=== PATIENT | male | born 1965 | race Caucasian/White ===

== ENCOUNTER 2024-01-14 15:18 | Inpatient (IN) | payer MEDICAID, OTHER ==
[~2024-01-14] VITALS: Ht 180.3 cm; Wt 116.5 kg
[2024-01-14 15:43] VITALS: PULSE 114; RESP 19; O2SAT 94
[2024-01-14 16:20] LABS: Urine Bacteria MOD /hpf (None Seen); Urine Blood 3+ /uL (Negative); Urine Clarity Ex.Turbid (Clear); Urine Color Brown (Yellow); Urine Mucus FEW (None Seen); Urine Protein, UAD 1+ (Negative); Urine Specific Gravity 1.024 (1.001-1.035); Urine Urobilinogen 2 mg/dL (Negative); Urine WBC 334 /hpf (0 - 3); Urine pH 5.5 (5.0-9.0)
[2024-01-14] MEDS: cefTRIAXone 1GM/50ML D5W 50 ML IV ONE (16:25)
[2024-01-14] MEDS: SODIUM CHLORIDE 0.9% 1,000 ML IV ONE (16:25)
[2024-01-14 16:26] LABS: Basophils # (auto) 0.1 10 ^3/uL (0-0.2); Basophils % (auto) 0.3 % (0.0-2.0); Eosinophils # (auto) 0.4 10 ^3/uL (0-0.8); Eosinophils % (auto) 2.2 % (0.0-7.0); Hematocrit 44.9 % (41.0-53.0); Hemoglobin 14.9 g/dL (13.5-17.5); Lymphocytes # (auto) 3.5 10 ^3/uL (0.4-5.4); Lymphocytes % (auto) 22.1 % (10.0-50.0); Mean Corpuscular Hgb Conc. 33.3 g/dL (32.0-36.0); Mean Corpuscular Volume 87.2 fL (80.0-100.0); Monocytes # (auto) 1.9 10 ^3/uL (0-1.3); Monocytes % (auto) 11.7 % (0.0-12.0); Neutrophils # (auto) 10.2 10 ^3/uL (1.6-8.6); Neutrophils % (auto) 63.7 % (37.0-80.0); Nucleated Red Blood Cells % 0.1 %; Platelet Count (auto) 403 10^3/uL (140-450); Red Blood Cells 5.15 10^6/uL (4.5-5.90); Red Cell Distribution Width 14.1 % (11.8-14.3)
[2024-01-14] MEDS: AZITHROMYCIN 500MG/ 250ML 250 ML IV ONE (17:19)
[2024-01-14 17:26] LABS: Chloride 105 mmol/L (98-107); Sodium 136 mmol/L (136-145)
[2024-01-14 17:29] LABS: Anion Gap 6 (5-15); Calcium 9.2 mg/dL (8.7-10.4); Carbon Dioxide 25 mmol/L (20-30)
[2024-01-14 17:30] LABS: Potassium 3.5 mmol/L (3.5-5.1)
[2024-01-14 17:34] LABS: Glucose 160 mg/dL (74-106)
[2024-01-14 17:48] LABS: BUN/Creatinine Ratio 11.5 (10.0-20.0); Blood Urea Nitrogen 7 mg/dL (9-23)
[2024-01-14 19:35] VITALS: PULSE 94; RESP 18; O2SAT 93
[2024-01-14] MEDS ORDERED: HYDROcodone-ACET 5/325MG TAB PO PRN (21:00)
[2024-01-14] MEDS ORDERED: ACETAMINOPHEN 325 MG TAB PO PRN (21:00)
[2024-01-14] MEDS ORDERED: DEXTROSE (50%) 50ML SYRG IV PRN (21:00)
[2024-01-14] MEDS ORDERED: DOCUSATE SOD 100 MG CAP PO PRN (21:00)
[2024-01-14] MEDS: SODIUM CHLORIDE 0.9% 1,000 ML IV SCH (21:00)
[2024-01-14] MEDS ORDERED: hydrALAZINE HCL 20 MG/ML VL IV PRN (21:00)
[2024-01-14] MEDS ORDERED: ONDANSETRON HCL 4 MG/2 ML VIAL IV PRN (21:00)
[2024-01-14] MEDS: ACCU-CHEK COMFORT CURVE STRIP VI SCH (21:46)
[2024-01-14] MEDS: InsuLIN REG 1unit/0.01ml Soln (100units/ml) SC SCH (21:47)
[2024-01-14] MEDS: ATORVASTATIN 20 MG TAB PO SCH (21:49)
[2024-01-14] MEDS ORDERED: MORPHINE SULFATE INJ 2 MG/ml SYRG IV PRN (23:45)
[2024-01-14] MEDS ORDERED: NITROGLYCERIN 0.4 MG SL TAB SL PRN (23:45)
[2024-01-15] VITALS (8 sets, daily range): BP systolic 100–126; BP diastolic 60–79; PULSE 53–84; RESP 17–21; TEMP 97–98; O2SAT 93–97
[2024-01-15 05:43] LABS: Basophils # (auto) 0.1 10 ^3/uL (0-0.2); Basophils % (auto) 0.4 % (0.0-2.0); Eosinophils # (auto) 0.2 10 ^3/uL (0-0.8); Eosinophils % (auto) 1.6 % (0.0-7.0); Hemoglobin 13.2 g/dL (13.5-17.5); Lymphocytes # (auto) 2.6 10 ^3/uL (0.4-5.4); Lymphocytes % (auto) 19.6 % (10.0-50.0); Mean Corpuscular Hemoglobin 29.2 pg (28.0-32.0); Mean Corpuscular Hgb Conc. 33.7 g/dL (32.0-36.0); Mean Corpuscular Volume 86.6 fL (80.0-100.0); Monocytes # (auto) 1.3 10 ^3/uL (0-1.3); Neutrophils # (auto) 8.9 10 ^3/uL (1.6-8.6); Neutrophils % (auto) 68.4 % (37.0-80.0); Platelet Count (auto) 371 10^3/uL (140-450); Red Cell Distribution Width 13.7 % (11.8-14.3)
[2024-01-15] MEDS: InsuLIN REG 1unit/0.01ml Soln (100units/ml) SC SCH (06:14)
[2024-01-15 06:16] LABS: Alanine Aminotransferase 14 U/L (7-40); Alkaline Phosphatase 59 U/L (46-116); Calcium 9.1 mg/dL (8.7-10.4)
[2024-01-15 06:17] LABS: Albumin 3.9 g/dL (3.2-4.8); Anion Gap 3 (5-15); Aspartate Aminotransferase 8 U/L (13-40); BUN/Creatinine Ratio 11.3 (10.0-20.0); Bilirubin, Total 0.6 mg/dL (0.2-1.0); Blood Urea Nitrogen 6 mg/dL (9-23); Carbon Dioxide 27 mmol/L (20-30); Chloride 106 mmol/L (98-107); Glucose 138 mg/dL (74-106); Potassium 3.5 mmol/L (3.5-5.1); Sodium 136 mmol/L (136-145); Total Protein 6.7 g/dL (5.7-8.2)
[2024-01-15] MEDS: cefTRIAXone 1GM/50ML D5W 50 ML IV SCH (09:19)
[2024-01-15] MEDS: ASPirin 81 mg TAB PO SCH (10:12)
[2024-01-15] MEDS: AZITHROMYCIN 500MG/ 250ML 250 ML IV SCH (10:12)
[2024-01-15] MEDS: PHENAZOPYRIDINE HCL 100 MG TAB PO SCH (11:49)
[2024-01-15] MEDS: TOLTERODINE TARTRATE 1 MG TAB PO ONE (11:49)
[2024-01-15] MEDS: SODIUM CHLORIDE 0.9% 1,000 ML IV SCH (12:15)
[2024-01-15 16:27] LABS: Free T3 3.74 pg/mL (2.3-4.2)
[2024-01-15 16:28] LABS: Folate (Folic Acid) 17.24 ng/mL (>5.38); Free T4 (Free Thyroxine) 0.87 ng/dL (0.89-1.76)
[2024-01-15] MEDS ORDERED: ENOXAPARIN SOD 60 MG/0.6 ML SYRINGE SC STA (16:51)
[2024-01-15] MEDS ORDERED: LEVOTHYROXINE SODIUM 50 MCG TAB PO STA (17:10)
[2024-01-15] MEDS ORDERED: LEVOTHYROXINE SODIUM 100 MCG TAB PO STA (17:19)
[2024-01-15] MEDS: ENOXAPARIN SOD 40 MG/0.4 ML SYRINGE SC SCH (18:05)
[2024-01-15] MEDS: LEVOTHYROXINE SODIUM 100 MCG TAB PO ONE (18:11)
[2024-01-16] VITALS (7 sets, daily range): BP systolic 98–124; BP diastolic 42–69; PULSE 79–86; RESP 18–24; TEMP 98–98.6; O2SAT 94–97
[2024-01-16 02:44] LABS: COVID19 ANTIGEN SOFIA FIA NEGATIVE (NEGATIVE)
[2024-01-16] MEDS ORDERED: LEVOTHYROXINE SODIUM 50 MCG TAB PO SCH (06:00)
[2024-01-16] MEDS: LEVOTHYROXINE SODIUM 100 MCG TAB PO SCH (06:13)
[2024-01-16 07:08] LABS: Basophils # (auto) 0 10 ^3/uL (0-0.2); Basophils % (auto) 0.4 % (0.0-2.0); Eosinophils # (auto) 0.4 10 ^3/uL (0-0.8); Eosinophils % (auto) 3.3 % (0.0-7.0); Hematocrit 39.2 % (41.0-53.0); Hemoglobin 13.4 g/dL (13.5-17.5); Lymphocytes % (auto) 18.7 % (10.0-50.0); Mean Corpuscular Hemoglobin 29.4 pg (28.0-32.0); Mean Corpuscular Hgb Conc. 34.1 g/dL (32.0-36.0); Mean Corpuscular Volume 86.3 fL (80.0-100.0); Monocytes # (auto) 0.9 10 ^3/uL (0-1.3); Monocytes % (auto) 8.5 % (0.0-12.0); Neutrophils # (auto) 7.4 10 ^3/uL (1.6-8.6); Neutrophils % (auto) 69.1 % (37.0-80.0); Platelet Count (auto) 376 10^3/uL (140-450); Red Blood Cells 4.54 10^6/uL (4.5-5.90); Red Cell Distribution Width 13.9 % (11.8-14.3); White Blood Cell 10.6 10^3/uL (4.4-10.8)
[2024-01-16 07:25] LABS: Alanine Aminotransferase 11 U/L (7-40); Albumin 3.9 g/dL (3.2-4.8); Alkaline Phosphatase 57 U/L (46-116); Anion Gap 2 (5-15); Aspartate Aminotransferase 8 U/L (13-40); BUN/Creatinine Ratio 10.5 (10.0-20.0); Bilirubin, Total 0.4 mg/dL (0.2-1.0); Blood Urea Nitrogen 6 mg/dL (9-23); Calcium 9.3 mg/dL (8.7-10.4); Carbon Dioxide 29 mmol/L (20-30); Chloride 105 mmol/L (98-107); Glucose 135 mg/dL (74-106); Potassium 3.8 mmol/L (3.5-5.1); Sodium 136 mmol/L (136-145); Total Protein 6.7 g/dL (5.7-8.2)
[2024-01-16] MEDS: levoFLOXacin 750MG 150 ML IV ONE (12:22)
[2024-01-16] MEDS: MUPIROCIN 2% OINT 15gm or 22gm FOR MRSA NARES EACHNOSTRI SCH (21:36)
[2024-01-17] VITALS (7 sets, daily range): BP systolic 118–126; BP diastolic 64–73; PULSE 68–85; RESP 17–20; TEMP 98–98.5; O2SAT 95–97
[2024-01-17 07:11] LABS: Basophils # (auto) 0 10 ^3/uL (0-0.2); Basophils % (auto) 0.4 % (0.0-2.0); Eosinophils # (auto) 0.4 10 ^3/uL (0-0.8); Eosinophils % (auto) 4.4 % (0.0-7.0); Hematocrit 38.2 % (41.0-53.0); Hemoglobin 13.2 g/dL (13.5-17.5); Lymphocytes # (auto) 2.1 10 ^3/uL (0.4-5.4); Lymphocytes % (auto) 23.6 % (10.0-50.0); Mean Corpuscular Hemoglobin 29.7 pg (28.0-32.0); Mean Corpuscular Hgb Conc. 34.5 g/dL (32.0-36.0); Mean Corpuscular Volume 85.9 fL (80.0-100.0); Monocytes # (auto) 0.8 10 ^3/uL (0-1.3); Monocytes % (auto) 9.3 % (0.0-12.0); Neutrophils # (auto) 5.6 10 ^3/uL (1.6-8.6); Neutrophils % (auto) 62.3 % (37.0-80.0); Platelet Count (auto) 394 10^3/uL (140-450); Red Blood Cells 4.44 10^6/uL (4.5-5.90); Red Cell Distribution Width 13.5 % (11.8-14.3)
[2024-01-17 07:27] LABS: Alanine Aminotransferase 17 U/L (7-40); Albumin 3.9 g/dL (3.2-4.8); Alkaline Phosphatase 54 U/L (46-116); Anion Gap 6 (5-15); Aspartate Aminotransferase 9 U/L (13-40); BUN/Creatinine Ratio 10.9 (10.0-20.0); Bilirubin, Total 0.4 mg/dL (0.2-1.0); Blood Urea Nitrogen 6 mg/dL (9-23); Calcium 9.2 mg/dL (8.7-10.4); Carbon Dioxide 28 mmol/L (20-30); Chloride 103 mmol/L (98-107); Glucose 129 mg/dL (74-106); Magnesium 1.8 mg/dL (1.6-2.6); Potassium 3.7 mmol/L (3.5-5.1); Sodium 137 mmol/L (136-145); Total Protein 6.8 g/dL (5.7-8.2)
[2024-01-17] MEDS: levoFLOXacin 750MG 150 ML IV SCH (10:00)
[2024-01-18] VITALS (8 sets, daily range): BP systolic 109–149; BP diastolic 50–75; PULSE 78–92; RESP 17–24; TEMP 97.7–98.5; O2SAT 92–95
[2024-01-18 07:08] LABS: Basophils # (auto) 0.1 10 ^3/uL (0-0.2); Basophils % (auto) 0.5 % (0.0-2.0); Eosinophils # (auto) 0.4 10 ^3/uL (0-0.8); Eosinophils % (auto) 4.6 % (0.0-7.0); Hematocrit 38.9 % (41.0-53.0); Hemoglobin 13.4 g/dL (13.5-17.5); Lymphocytes # (auto) 2.4 10 ^3/uL (0.4-5.4); Lymphocytes % (auto) 24.7 % (10.0-50.0); Mean Corpuscular Hemoglobin 29.6 pg (28.0-32.0); Mean Corpuscular Hgb Conc. 34.4 g/dL (32.0-36.0); Mean Corpuscular Volume 85.9 fL (80.0-100.0); Monocytes # (auto) 0.9 10 ^3/uL (0-1.3); Monocytes % (auto) 9.2 % (0.0-12.0); Neutrophils # (auto) 5.9 10 ^3/uL (1.6-8.6); Nucleated Red Blood Cells % 0.1 %; Platelet Count (auto) 426 10^3/uL (140-450); Red Blood Cells 4.53 10^6/uL (4.5-5.90); Red Cell Distribution Width 13.8 % (11.8-14.3); White Blood Cell 9.7 10^3/uL (4.4-10.8)
[2024-01-18 07:27] LABS: Calcium 9.5 mg/dL (8.7-10.4); Chloride 104 mmol/L (98-107); Potassium 3.8 mmol/L (3.5-5.1); Sodium 136 mmol/L (136-145)
[2024-01-18 07:28] LABS: Anion Gap 3 (5-15); Carbon Dioxide 29 mmol/L (20-30)
[2024-01-18 07:33] LABS: BUN/Creatinine Ratio 12.1 (10.0-20.0); Blood Urea Nitrogen 7 mg/dL (9-23); Glucose 127 mg/dL (74-106)
[2024-01-18] MEDS: LORazepam 2MG/ML-1ML VIAL IV PRN (16:08)
[2024-01-18] MEDS ORDERED: ASPI-325 PO (17:55)
[2024-01-18] MEDS ORDERED: LEVO100T8 PO (17:55)
[2024-01-18] MEDS ORDERED: LEVO500T91 PO (17:55)
[2024-01-18] MEDS ORDERED: ATOR20TA50 PO (17:55)
[2024-01-19 01:00] VITALS: BP 119/70; PULSE 81; RESP 20; TEMP 97.5; O2SAT 97
[2024-01-19 05:00] VITALS: BP 108/65; PULSE 76; RESP 20; TEMP 97.7; O2SAT 97
[2024-01-19 09:00] VITALS: BP 138/64; PULSE 84; RESP 20; TEMP 97.7; O2SAT 97
[2024-01-19 12:30] VITALS: BP 125/69; PULSE 77; RESP 20; TEMP 97.6; O2SAT 97
== END 2024-01-19 15:37 | disposition home or self-care (01) | DRG 720 ==
LOC: EDBD 15:18 → ER 15:18 → CENTRAL 23:44 → TELE 23:44 → TELE-WESTW 01-15 02:52 → TELE-CENTR 01-17 01:49 → CENTRAL 01-18 23:23
PROVIDERS: ADMIT Internal Medicine; ATTEND Internal Medicine
DX: A41.59 Other Gram-negative sepsis (principal); J96.01 Acute respiratory failure with hypoxia; J15.69 Pneumonia due to other Gram-negative bacteria; J15.9 Unspecified bacterial pneumonia; I69.351 Hemiplegia and hemiparesis following cerebral infarction affecting right dominant side; N39.0 Urinary tract infection, site not specified; E11.65 Type 2 diabetes mellitus with hyperglycemia; E78.5 Hyperlipidemia, unspecified; E03.9 Hypothyroidism, unspecified; R33.9 Retention of urine, unspecified; Z79.899 Other long term (current) drug therapy
CPT/HCPCS: 36415; 70450; 70551; 71045; 80048; 80053; 81001; 82607; 82746; 82962; 83036; 83605; 83735; 83880; 84439; 84443; 84481; 84484; 85025; 87040; 87081; 87086; 87088; 87186; 87426; 93306; 93886; 99291; G0378; J1815; J1956